=== PATIENT | female | born 1995 | race American Indian/Alaskan Native ===

== ENCOUNTER 2017-06-16 12:29 | Emergency (ER) | payer BC ==
[2017-06-16 12:54] LABS: Hematocrit 34.8 % (30.3-42.9); Mean Corpuscular HGB Conc 35 % (30-34); Mean Corpuscular Hemoglobin 30 pg (28-32); Mean Corpuscular Volume 88 fl (79-97); Platelet Count 303 K/mm3 (140-440); Red Blood Count 3.95 M/mm3 (3.65-5.03); Red Cell Distribution Width 13.7 % (13.2-15.2); White Blood Count 7.9 K/mm3 (4.5-11.0)
[2017-06-16 13:14] LABS: Anion Gap 18 mmol/L; BUN/Creatinine Ratio 13.33; Blood Urea Nitrogen 8 mg/dL (7-17); Calcium 9.5 mg/dL (8.4-10.2); Carbon Dioxide 22 mmol/L (22-30); Glucose 86 mg/dL (65-100); Potassium 3.9 mmol/L (3.6-5.0); Sodium 132 mmol/L (137-145)
[2017-06-16 13:35] LABS: Bacteria,Urine 3+ /HPF (Negative); Bilirubin,Urine NEG (Negative); Blood,Urine NEG (Negative); Ketones,Urine NEG (Negative); Leukocyte Esterase,Urine LG (Negative); Mucus,Urine 3+ /HPF; Nitrite,Urine POS (Negative); Urobilinogen,Urine < 2.0 mg/dL (<2.0)
[2017-06-16 13:39] LABS: WBC,Urine > 182.0 /HPF (0.0-6.0)
--- NOTE | 2017-06-16 15:33 | Ultrasound Report ---
FINAL REPORT PROCEDURE: US OB \T\lt; = 14 WEEKS FETUS TECHNIQUE: Real-time transabdominal sonography of the uterus, placenta, amniotic fluid, adnexa, and fetus was performed with image documentation. Measurements were obtained to determine age/size. M-mode Doppler was used to document heartbeat. CPT 09522 HISTORY: PELVIC PAIN COMPARISON: No prior studies are available for comparison. FINDINGS: BPD 2 centimeters and femoral length 0.8 centimeters, which correspond to a gestational age of: 12 weeks, 6 days. Yolk Sac: Normal. Embryonic Cardiac Activity: 171 beats per minute Gestational Sac: Normal. Amniotic fluid: Normal. Cervix: Normal. Right Ovary: 3.7 x 2.7 x 2.7 centimeters. There is a cystic lesion measuring 2.7 centimeters most likely representing a corpus luteal cyst. Left Ovary: 2.5 x 1.9 x 1.6 centimeters Estimated delivery date: 12/23/2017 Uterus and adnexa: Normal. IMPRESSION: Single live intrauterine gestation at approximately 12 weeks and 6 days. EDC by US 12/23/2017
--- NOTE | 2017-06-16 16:00 | Emergency Department Report ---
ED Female HPI - General Chief complaint: Urogenital-Female Stated complaint: POSS BLADDER INFECTION Time Seen by Provider: 06/16/17 15:44 Source: patient Mode of arrival: Ambulatory Limitations: No Limitations - History of Present Illness Initial comments: Patient reports right pelvic pain with burning on urination and vaginal discharge that started one week ago. Patient is unsure if she is since she has had four negative home tests MD Complaint: vaginal discharge, dysuria, pelvic pain, possible STD Onset/Timin -: week(s) Location: perineum Radiation: suprapubic, RLQ Severity: moderate Severity scale (0 -10): 6 Quality: burning Consistency: constant Improves with: none Worsens with: urination, intercourse Are you Now?: Yes Associated Symptoms: vaginal discharge, abdominal pain, dysuria. denies: nausea /vomiting, fever/chills, headaches, loss of appetite, hematuria, rash, seizure, shortness of breath, syncope, weakness - Related Data Sexually active: Yes : 2 Para: 1 A: 0 Previous Rx's Medication Instructions Recorded Last Taken Type Nitrofurantoin Falls/M-Cryst 100 mg PO Q12HR #14 capsule 06/16/17 Unknown Rx [Macrobid CAP] metroNIDAZOLE [Flagyl] 500 mg PO Q12HR #14 tab 06/16/17 Unknown Rx Allergies Allergy/AdvReac Type Severity Reaction Status Date / Time No Known Allergies Allergy Unverified 06/16/17 12:38 ED Review of Systems ROS: Stated complaint: POSS BLADDER INFECTION Other details as noted in HPI Constitutional: denies: chills, diaphoresis, fever, malaise, weakness ENT: denies: ear pain, throat pain Respiratory: denies: cough, orthopnea, shortness of breath, SOB with exertion, SOB at rest Cardiovascular: denies: chest pain, palpitations, dyspnea on exertion, orthopnea Gastrointestinal: abdominal pain. denies: nausea, vomiting, diarrhea, constipation, hematemesis Genitourinary: dysuria, discharge (vaginal). denies: urgency, frequency, hematuria Musculoskeletal: denies: back pain, joint swelling, arthralgia Skin: denies: rash, lesions, change in color, change in hair/nails, pruritus Neurological: denies: headache, weakness Psychiatric: denies: anxiety, depression Hematological/Lymphatic: denies: easy bleeding, easy bruising, swollen glands ED Past Medical Hx - Past Medical History Previous Medical History?: No - Surgical History Past Surgical History?: No - Social History Smoking Status: Never Smoker - Medications Home Medications: Home Medications Medication Instructions Recorded Confirmed Last Taken Type Nitrofurantoin [place]/M-Cryst 100 mg PO Q12HR #14 capsule 06/16/17 Unknown Rx [Macrobid CAP] metroNIDAZOLE [Flagyl] 500 mg PO Q12HR #14 tab 06/16/17 Unknown Rx ED Physical Exam - General Limitations: No Limitations General appearance: alert, in no apparent distress - Head Head exam: Present: atraumatic - Eye Eye exam: Present: normal appearance - ENT ENT exam: Present: normal exam, normal orophraynx, mucous membranes moist. Absent: mucous membranes dry - Neck Neck exam: Present: normal inspection, full ROM. Absent: tenderness, meningismus, lymphadenopathy, thyromegaly - Respiratory Respiratory exam: Present: normal lung sounds bilaterally. Absent: respiratory distress, wheezes, rales, rhonchi, stridor, chest wall tenderness, accessory muscle use, decreased breath sounds, prolonged expiratory - Cardiovascular Cardiovascular Exam: Present: normal heart sounds. Absent: systolic murmur, diastolic murmur, rubs, gallop - GI/Abdominal GI/Abdominal exam: Present: soft, tenderness, normal bowel sounds. Absent: distended, guarding, rebound, rigid - External exam: Present: normal external exam. Absent: erythema, swelling, lesions, lacerations, ecchymosis, bleeding Speculum exam: Present: vaginal discharge (creamy), cervical discharge (creamy) . Absent: erythema, vaginal bleeding, foreign body, tissue, laceration Bi-manual exam: Present: normal bi-manual exam. Absent: cervical motion tendernes, adnexal tenderness, adnexal mass, uterine enlargement, uterine tenderness - Extremities Exam Extremities exam: Present: normal inspection, full ROM, normal capillary refill. Absent: tenderness, pedal edema, joint swelling, calf tenderness - Back Exam Back exam: Present: normal inspection, full ROM. Absent: CVA tenderness (R), CVA tenderness (L) - Neurological Exam Neurological exam: Present: alert, oriented X3, CN II-XII intact, normal gait, reflexes normal. Absent: motor sensory deficit - Psychiatric Psychiatric exam: Present: normal affect, normal mood. Absent: depressed, agitated - Skin Skin exam: Present: warm, dry, intact, normal color. Absent: rash ED Course Vital Signs 06/16/17 06/16/17 12:34 17:23 Temperature 98.6 F 98.1 F Pulse Rate 102 H 100 H Respiratory 18 18 Rate Blood Pressure 136/85 Blood Pressure 121/78 [Left] O2 Sat by Pulse 99 100 Oximetry ED Medical Decision Making - Lab Data Result diagrams: 06/16/17 12:46 06/16/17 12:46 Lab Results 06/16/17 06/16/17 06/16/17 Range/Units 12:46 12:46 12:46 WBC 7.9 (4.5-11.0) K/mm3 RBC 3.95 (3.65-5.03) M/mm3 Hgb 12.0 (10.1-14.3) gm/dl Hct 34.8 (30.3-42.9) % MCV 88 (79-97) fl MCH 30 (28-32) pg MCHC 35 H (30-34) % RDW 13.7 (13.2-15.2) % Plt Count 303 (140-440) K/mm3 Sodium 132 L (137-145) mmol/L Potassium 3.9 (3.6-5.0) mmol/L Chloride 96.0 L (98-107) mmol/L Carbon Dioxide 22 (22-30) mmol/L Anion Gap 18 mmol/L BUN 8 (7-17) mg/dL Creatinine 0.6 L (0.7-1.2) mg/dL Estimated GFR > 60 ml/min BUN/Creatinine Ratio 13.33 % Glucose 86 (65-100) mg/dL Calcium 9.5 (8.4-10.2) mg/dL HCG, Quant [id number] H (0-4) mIU/mL Urine Color (Yellow) Urine Turbidity (Clear) Urine pH (5.0-7.0) Ur Specific [place] (1.003-1.030) Urine Protein (Negative) mg/dL Urine Glucose (UA) (Negative) mg/dL Urine Ketones (Negative) mg/dL Urine Blood (Negative) Urine Nitrite (Negative) Urine Bilirubin (Negative) Urine Urobilinogen (<2.0) mg/dL Ur Leukocyte Esterase (Negative) Urine WBC (Auto) (0.0-6.0) /HPF Urine RBC (Auto) (0.0-6.0) /HPF U Epithel Cells (Auto) (0-13.0) /HPF Urine Bacteria (Auto) (Negative) /HPF Urine Mucus /HPF Blood Type 06/16/17 06/16/17 Range/Units 12:51 14:45 WBC (4.5-11.0) K/mm3 RBC (3.65-5.03) M/mm3 Hgb (10.1-14.3) gm/dl Hct (30.3-42.9) % MCV (79-97) fl MCH (28-32) pg MCHC (30-34) % RDW (13.2-15.2) % Plt Count (140-440) K/mm3 Sodium (137-145) mmol/L Potassium (3.6-5.0) mmol/L Chloride (98-107) mmol/L Carbon Dioxide (22-30) mmol/L Anion Gap mmol/L BUN (7-17) mg/dL Creatinine (0.7-1.2) mg/dL Estimated GFR ml/min BUN/Creatinine Ratio % Glucose (65-100) mg/dL Calcium (8.4-10.2) mg/dL HCG, Quant (0-4) mIU/mL Urine Color Yellow (Yellow) Urine Turbidity Cloudy (Clear) Urine pH 6.0 (5.0-7.0) Ur Specific [place] 1.020 (1.003-1.030) Urine Protein 100 mg/dl (Negative) mg/dL Urine Glucose (UA) Neg (Negative) mg/dL Urine Ketones Neg (Negative) mg/dL Urine Blood Neg (Negative) Urine Nitrite Pos (Negative) Urine Bilirubin Neg (Negative) Urine Urobilinogen < 2.0 (<2.0) mg/dL Ur Leukocyte Esterase Lg (Negative) Urine WBC (Auto) > 182.0 H (0.0-6.0) /HPF Urine RBC (Auto) 7.0 (0.0-6.0) /HPF U Epithel Cells (Auto) 4.0 (0-13.0) /HPF Urine Bacteria (Auto) 3+ (Negative) /HPF Urine Mucus 3+ /HPF Blood Type O POSITIVE Microbiology 06/16/17 16:00 Vaginal Wet Prep - Final No Yeast Seen No Trichomoniasis Seen 20% or > Clue Cells Seen - Radiology Data Radiology results: image reviewed HISTORY: PELVIC PAIN COMPARISON: No prior studies are available for comparison. FINDINGS: BPD 2 centimeters and femoral length 0.8 centimeters, which correspond to a gestational age of: 12 weeks, 6 days. Yolk Sac: Normal. Embryonic Cardiac Activity: 171 beats per minute Gestational Sac: Normal. Amniotic fluid: Normal. Cervix: Normal. Right Ovary: 3.7 x 2.7 x 2.7 centimeters. There is a cystic lesion measuring 2.7 centimeters most likely representing a corpus luteal cyst. Left Ovary: 2.5 x 1.9 x 1.6 centimeters Estimated delivery date: 12/23/2017 Uterus and adnexa: Normal. IMPRESSION: Single live intrauterine gestation at approximately 12 weeks and 6 days. EDC by 12/23/2017 - Medical Decision Making During the course of ED, laboratory and radiology studies were ordered. The radiology study revealed single live intrauterine gestation at approximately 12 weeks and 6 days. EDC by 12/23/2017. Patient was sent home with prescriptions for Flagyl and Macrobid according to results of laboratory studies. She was also instructed to follow up with the selective referral given at discharge for care, she verbalized understanding - Differential Diagnosis Urinary Tract Infection, IUP@12 weeks, STI, Bacteral Vaginosis Critical care attestation.: If time is entered above; I have spent that time in minutes in the direct care of this critically ill patient, excluding procedure time. ED Disposition Clinical Impression: BV (bacterial vaginosis) Urinary tract infection Qualifiers: Urinary tract infection type: site unspecified Hematuria presence: without hematuria Qualified Code(s): N39.0 - Urinary tract infection, site not specified Qualifiers: Weeks of gestation: 12 weeks Qualified Code(s): Z3A.12 - 12 weeks gestation of Disposition: DC-01 TO HOME OR SELFCARE Is pt being admited?: No Does the pt Need Aspirin: No Condition: Stable Instructions: (ED), Bacterial Vaginosis (ED), Urinary Tract Infection in Women (ED) Additional Instructions: Take medication as directed. Follow up with the selective referral given at discharge. Return back to the ED for worsening symptoms or concerns Prescriptions: metroNIDAZOLE [Flagyl] 500 mg PO Q12HR #14 tab Nitrofurantoin Falls/M-Cryst [Macrobid CAP] 100 mg PO Q12HR #14 capsule Referrals: PRIMARY CARE, [Primary Care Provider] - 3-5 Days JENNY GARCIA MD [Staff Physician] - 3-5 Days MARTIR RICHARDSON CNM [Advanced Practice Nurse] - 3-5 Days SHEREEN,ALTON WILSON MD [Staff Physician] - 3-5 Days Forms: STI Treatment and Prevention Time of Disposition: 16:53
[2017-06-16 17:24] VITALS: BP 121/78
== END 2017-06-16 17:23 | disposition home or self-care (01) ==
LOC: ED 12:29
DX: O23.41 Unspecified infection of urinary tract in pregnancy, first trimester (principal); N76.0 Acute vaginitis; Z3A.12 12 weeks gestation of pregnancy
CPT/HCPCS: 36415; 76801; 80048; 81001; 84702; 85027; 86900; 86901; 87210; 87591; 99284